=== PATIENT | male | born 1965 | race Caucasian/White ===

== ENCOUNTER 2021-09-02 14:14 | Emergency (ER) | payer OTHER ==
[2021-09-02 14:25] VITALS: BP_SYST 167; BP_DIAS 105; BP_DIAS 108
[2021-09-02] MEDS ORDERED: MORPHINE SULFATE IV STA ×2 (14:31→15:34)
[2021-09-02 14:41] VITALS: BP_SYST 167
[2021-09-02 14:49] LABS: BASOPHIL # 0.1 10^3/uL (0.0-0.1); BASOPHIL % 0.8 % (0.0-0.2); EOSINOPHIL # 0.3 10^3/uL (0.0-0.2); EOSINOPHIL % 2.3 % (0.0-5.0); LYMPHOCYTES # 2.48 10^3/uL1 (1.0-4.8); LYMPHOCYTES % 20.5 % (24.0-44.0); MEAN CORP HGB 31.3 pg (26-34); MONOCYTES # 0.9 10^3/uL (0.3-0.8); MONOCYTES % 7.4 % (5.0-12.0); NEUTROPHIL # 8.3 10^3/uL (1.8-7.7); NEUTROPHILS % 68.5 % (41.0-85.0); RED CELL DISTRIBUTION WIDTH 14.9 % (11.5-14.5)
[2021-09-02] MEDS ORDERED: ZOFRAN ONE ×2 (14:50→15:57)
[2021-09-02] MEDS ORDERED: MORPHINE SULFATE ONE ×2 (14:51→15:59)
[2021-09-02] MEDS ORDERED: ZOFRAN IV ONE (15:00)
--- NOTE | 2021-09-02 15:00 | DIREP ---
PROCEDURE:CHEST 1 VIEW COMPARISON:None. INDICATIONS:FALL, LEFT RIB PAIN FINDINGS: LUNGS/PLEURA:Hazy left basilar pleuroparenchymal opacities, suggesting a small left pleural effusion with adjacent left basilar atelectasis and/or infiltrate. The lungs are otherwise clear. No sizable right pleural effusion. No pneumothorax. Mild elevation of the left hemidiaphragm. VASCULATURE:Normal. Unremarkable pulmonary vasculature. CARDIAC:Heart size is normal. MEDIASTINUM:Mildly tortuous thoracic aorta. BONES:Apparent cortical step-off involving the lateral left 7th rib, suspicious for a minimally nondisplaced fracture. Mild degenerative changes involving the shoulders thoracic spine. OTHER:Negative. CONCLUSION: 1. Findings suspicious for a minimally displaced fracture involving the left lateral 7th rib. 2. Hazy left basilar pleuroparenchymal opacities, suggesting a small left pleural effusion with adjacent left basilar atelectasis and/or infiltrate. No pneumothorax. 3. Additional chronic findings, as above. Dictated by: Harry Haque MD on 09/02/2021 at 02:55 PM
[2021-09-02 15:20] LABS: CARBON DIOXIDE 25.1 mmol/L (20.0-32)
--- NOTE | 2021-09-02 15:47 | PCM.EKG ---
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 Reading MD: Measurements Intervals [place] Rate: 91 P: 34 OK: 132 QRS: 47 QRSD: 115 T: 108 QT: 362 QTc: 446 Interpretive Statements Sinus rhythm Nonspecific intraventricular conduction delay Repol abnrm suggests ischemia, lateral leads No previous ECG available for comparison Please click the below link to view image of tracing.
[2021-09-02] MEDS ORDERED: TORADOL ONE (15:57)
[2021-09-02] MEDS ORDERED: ZOFRAN IV PRN (16:00)
[2021-09-02] MEDS ORDERED: TORADOL IV PRN (16:00)
--- NOTE | 2021-09-02 16:56 | ER.PDOC ---
General Chief Complaint: Trauma Stated Complaint: SOB/FALL/PAIN LEFT RIB AREA Time seen by MD: 15:30 Source: patient History of Present Illness Occurred: just prior to arrival Where: work Severity: moderate Injuries/Pain Location: chest, abdomen Context: Slipped Associated Symptoms: abdominal pain, chest pain Allergies: Coded Allergies: No Known Allergies (Unverified , 09/02/21) Past Medical History Medical History: no pertinent history Surgical History: no surgical history Social History Alcohol Use: heavy Drug Use: none Review of Systems Respiratory: shortness of breath Gastrointestinal: abdominal pain Musculoskeletal: muscle pain, other Physical Exam General Appearance: Moderate Distress Head: No Evidence of Injury Ears, Nose, Mouth, Throat: Hearing Grossly Normal, No Evidence of ENT Injury Neck: Non-Tender, Normal Alignment Cardiovascular/Respiratory: Regular Rate, Rhythm, Rib Tenderness Back: CVA Tenderness (L) Extremities: No Evidence of Injury, Normal Range of Motion Skin: Normal Color, Warm/Dry Results/Orders Results/Orders Orders - AMAURI WILLIAMSON MD Morphine Sulfate (Morphine Sulfate) (09/02/21 14:31) Ondansetron Hcl/Pf (Zofran) (09/02/21 15:00) Cbc With Auto Diff (09/02/21 14:33) Comprehensive Metabolic Panel (09/02/21 14:33) Creatine Kinase (09/02/21 14:33) Creatine Kinase Mb (09/02/21 14:33) Probnp B-Type Arch Support Technician (09/02/21 14:33) PT (09/02/21 14:33) Partial Thromboplastin Time. (09/02/21 14:33) Ekg-Routine (09/02/21 14:33) Troponin I High Sensitivity (09/02/21 14:33) Xr Chest 1v (09/02/21 14:31) Alcohol(Ml) (09/02/21 14:57) Ketorolac Tromethamine (Toradol) (09/02/21 16:00) Morphine Sulfate (Morphine Sulfate) (09/02/21 15:34) Ct Abd/Pel With Iv Contrast (09/02/21 15:34) Ct Chest W Iv Contrast (09/02/21 15:34) Ondansetron Hcl/Pf (Zofran) (09/02/21 16:00) Ondansetron Hcl/Pf (Zofran) (09/02/21 15:57) Ketorolac Tromethamine (Toradol) (09/02/21 15:57) Morphine Sulfate (Morphine Sulfate) (09/02/21 15:59) Vital Signs Date Time Temp Pulse Resp B/P (MAP) Pulse Ox O2 Delivery O2 Flow Rate FiO2 09/02/21 14:41 24 09/02/21 14:25 97.8 109 24 167/105 (125) 98 Room Air 09/02/21 14:25 97.6 110 26 98 09/02/21 14:25 97.8 109 24 Administered Medications Medications (Trade) Dose Ordered Sig/Eliseo Route PRN Reason Start Time Stop Time Status Last Admin Dose Admin Ketorolac Tromethamine (Toradol) 30 mg OT PRN IV PAIN 4 - 6 09/02/21 16:00 09/02/21 19:05 DC 09/02/21 16:13 30 MG Morphine Sulfate (Morphine Sulfate) 4 mg STAT STAT IV 09/02/21 14:31 09/02/21 14:33 DC 09/02/21 14:55 4 MG Morphine Sulfate (Morphine Sulfate) 4 mg STAT STAT IV 09/02/21 15:34 09/02/21 15:39 DC 09/02/21 16:13 4 MG Ondansetron HCl (Zofran) 4 mg OT ONCE IV 09/02/21 15:00 09/02/21 15:01 DC 09/02/21 14:54 4 MG Ondansetron HCl (Zofran) 4 mg OT PRN IV NAUSEA / VOMITING 09/02/21 16:00 09/02/21 19:05 DC 09/02/21 16:12 4 MG Laboratory Tests Test 09/02/21 14:33 09/02/21 14:57 White Blood Count 12.1 10^3/uL (4.5-11.0) H Red Blood Count 5.15 10^6/uL (4.50-5.90) Hemoglobin 16.1 g/dL (13.9-16.3) Hematocrit 49.9 % (37.0-53.0) Mean Corpuscular Volume 96.9 fL (78-100) Mean Corpuscular Hemoglobin 31.3 pg (26-34) Mean Corpuscular Hemoglobin Concent 32.3 g/dL (33-36.5) L Red Cell Distribution Width 14.9 % (11.5-14.5) H Platelet Count 285 10^3/uL (150-400) Mean Platelet Volume 10.2 fL (7.8-11.0) Neutrophils (%) (Auto) 68.5 % (41.0-85.0) Lymphocytes (%) (Auto) 20.5 % (24.0-44.0) L Monocytes (%) (Auto) 7.4 % (5.0-12.0) Neutrophils # (Auto) 8.3 10^3/uL (1.8-7.7) H Lymphocytes # (Auto) 2.48 10^3/uL1 (1.0-4.8) Monocytes # (Auto) 0.9 10^3/uL (0.3-0.8) H Absolute Immature Granulocyte (auto 0.06 10^3 u/L (0-2) Absolute Eosinophils (auto) 0.3 10^3/uL (0.0-0.2) H Immature Granulocytes % 0.50 % (0.00-0.50) Eosinophils % 2.3 % (0.0-5.0) Basophils % 0.8 % (0.0-0.2) H Basophils # 0.1 10^3/uL (0.0-0.1) Prothrombin Time 9.7 SEC (9.1-11.5) Prothrombin Time INR (Non-Therap) 0.9 Activated Partial Thromboplast Time 21.1 SEC (22.5-33.1) L Serum Alcohol < 3 mg/dL (0-50) Sodium Level 141 mmol/L (132-145) Potassium Level 4.2 mmol/L (3.6-5.2) Chloride Level 106.0 mmol/L (96-109) Carbon Dioxide Level 25.1 mmol/L (20.0-32) Anion Gap 14.1 Blood Urea Nitrogen 21 mg/dL (7-18) H Creatinine 1.39 mg/dL (0.59-1.40) Estimated GFR () 64.0 (>/=60) Est GFR (CKD-EPI)(Non-Afr British) 52.9 (>/=60) BUN/Creatinine Ratio 15.0 Glucose Level 182 mg/dL (70-110) H Calcium Level 9.0 mg/dL (8.4-10.5) Total Bilirubin 0.6 mg/dL (0.2-1.0) Aspartate Amino Transferase (AST) 16 U/L (0-35) Alanine Aminotransferase (ALT) 27 U/L (12-78) Alkaline Phosphatase 101 U/L (50-136) Total Creatine Kinase 190 U/L (39-308) Creatine Kinase MB 1.4 ng/mL (0.5-3.6) Troponin I High Sensitivity 5 ng/L (0-75) Pro-B-Type Natriuretic Peptide 25 pg/mL (0-125) Total Protein 7.7 g/dL (6.4-8.2) Albumin 4.3 g/dL (3.4-5.0) Globulin 3.4 Albumin/Globulin Ratio 1.264 Progress Progress 1700- patient declines Thoracentesis/ Thoracotomy, I explained this would provide immediate relief. He continues to decline, does not want any surgical procedure. 1730- spoke with radiology and states effusion not large enough for thoracostomy. Called surgeon, Dr. Vivas and he recommends pain control and close followup, since these typically resolve over time. EKG/XRAY/CT/US EKG: NSR EKG Comments: NSR @ 91 ER DEPART Departure Time of Disposition: 17:47 Disposition: 01 HOME / SELF CARE / HOMELESS Impression: Primary Impression: Chest wall trauma Additional Impression: Pleural effusion Condition: Stable Referrals: PCP,UNKNOWN (PCP) PRIMARY CARE PROVIDER Additional Instructions: NORCO PRN. F/up with PCP for re-evaluation of effusion in 1 week. Strict ER precautions explained to patient. Duration or Time Spent with Pa: 1hr Problem Qualifiers AMAURI WILLIAMSON MD Sep 02, 2021 16:56
--- NOTE | 2021-09-02 17:08 | DIREP ---
PROCEDURE:CT CHEST ABDOMEN AND PELVIS WITH CONTRAST COMPARISON:[facility], CR, XRAY CHEST SINGLE VW, 09/02/2021, 02:41 PM. INDICATIONS:fall TECHNIQUE:Helical sections through the chest were performed from the lung apices through the diaphragms with IV contrast, in the arterial phase. Venous phase images are submitted of the abdomen and pelvis.. Sagittal and coronal reconstructions are obtained from source images. FINDINGS: LUNGS:Regions of atelectasis on the left. PLEURA:Small left effusion. No pneumothorax identified CARDIAC:Normal. No enlargement, pericardial thickening, or significant calcification. MEDIASTINUM:Normal. No mass or adenopathy. JENNIFER:Normal. No mass or adenopathy. AORTA:Normal. No aneurysm. CHEST WALL:Normal. No mass or axillary adenopathy. BONES:Rib fracture is not identified. OTHER:Negative. No focal liver lesions. Spleen and pancreas unremarkable. Adrenals within normal limits. Kidneys reveal symmetric and homogeneous enhancement. Atherosclerotic changes aorta, no retroperitoneal adenopathy or hemorrhage. No free air. No bowel obstruction. Normal appendix. No free fluid within the pelvis. CONCLUSION:Left effusion, without pneumothorax. No acute intra-abdominal findings. Dictated by: Frantz Garcia MD on 09/02/2021 at 04:16 PM
== END 2021-09-02 18:45 | disposition home or self-care (01) ==
LOC: ER 14:14
DX: S29.9XXA Unspecified injury of thorax, initial encounter (principal); J90 Pleural effusion, not elsewhere classified; W01.0XXA Fall on same level from slipping, tripping and stumbling without subsequent striking against object, initial encounter; Y93.89 Activity, other specified; Y92.89 Other specified places as the place of occurrence of the external cause; Y99.0 Civilian activity done for income or pay
CPT/HCPCS: 36415; 71045; 71260; 74177; 80053; 82077; 82550; 82553; 83880; 84484; 85025; 85610; 85730; 93005; 96374; 96375; 96376; 99285; J1885; J2405 ×2; Q9966